=== PATIENT | female | born 1965 | race African-American/Black ===

== ENCOUNTER 2017-11-18 14:59 | Emergency (ER) | payer MEDICAID ==
[2017-11-18] MEDS ORDERED: Sodium Chloride 0.9% 10 ML Syringe FLUSH PRN (16:26)
[2017-11-18] MEDS ORDERED: Sodium Chloride 0.9% 2.5 ML Syringe FLUSH PRN (16:26)
[2017-11-18] MEDS ORDERED: Bupivacaine 0.5% 10 ML SDV INJECT ONE (16:29)
--- NOTE | 2017-11-18 16:31 | EDM.PDOC ---
ED HPI GENERAL MEDICAL PROBLEM - General Chief Complaint: Upper Extremity Injury/Pain Stated Complaint: RIGHT HAND SWOLLEN Time Seen by Provider: 11/18/17 15:06 Source of Information: Reports: Patient History Limitations: Reports: No Limitations - History of Present Illness INITIAL COMMENTS - FREE TEXT/NARRATIVE: History of present illness: []Patient punched a wall 7 days ago her right index finger started swelling and she started digging it thinking that was something inside of it. Worse with increased swelling denies any fevers, chills or drainage from the wound. Review of systems: As per history of present illness and below otherwise all systems reviewed and negative. Past medical history: As per history of present illness and as reviewed below otherwise noncontributory. Surgical history: As per history of present illness and as reviewed below otherwise noncontributory. Social history: No reported history of drug or alcohol abuse. Family history: As per history of present illness and as reviewed below otherwise noncontributory. Physical exam: General: Well developed, well nourished in NAD HEENT: Atraumatic, normocephalic, pupils reactive, negative for conjunctival pallor or scleral icterus, mucous membranes moist, throat clear, neck supple, nontender, trachea midline. Lungs: Clear to auscultation, breath sounds equal bilaterally, chest nontender. Heart: S1S2, regular, negative for clicks, rubs, or JVD. Abdomen: Soft, nondistended, nontender. Negative for masses or hepatosplenomegaly. Negative for costovertebral tenderness. Pelvis: Stable nontender. Genitourinary: Deferred. Rectal: Deferred. Extremities: Atraumatic, negative for cords or calf pain. Neurovascular unremarkable. Neuro: Awake, alert, oriented. Cranial nerves II through XII unremarkable. Cerebellum unremarkable. Motor and sensory unremarkable throughout. Exam nonfocal. Skin:warm and dry Diagnostics: X-ray no fracture positive soft tissue swelling no gas or fluid noted Therapeutics: IV vancomycin, Bactrim by mouth, digital block for pain relief ED Course: Unremarkable Impression: Cellulitis right index finger Prescriptions: Bactrim twice a day for 10 days Plan: Discussed management with Dr. Rosa. Follow up hand surgery Definitive disposition and diagnosis as appropriate pending reevaluation and review of above. ` right hand Pain Score (Numeric/FACES): 10 - Related Data Allergies Allergy/AdvReac Type Severity Reaction Status Date / Time No Known Allergies Allergy Verified 11/18/17 15:54 Home Meds: Home Meds Diclofenac Sodium [Voltaren] 75 mg PO BIDMEALS PRN #20 tab.cr 11/18/17 [Rx] Sulfamethoxazole/Trimethoprim [Bactrim Ds Tablet] 1 each PO BID #20 tablet 11/18 [Rx] Past Medical History Immunologic History: Reports: HIV - Infectious Disease History Infectious Disease History: Reports: None - Past Surgical History GI Surgical History: Reports: Appendectomy Social & Family History - Family History Family Medical History: Noncontributory - Tobacco Use Smoking Status *Q: Current Every Day Smoker Years of Tobacco use: 40 Packs/Tins Daily: 0.4 - Alcohol Use Days Per Week of Alcohol Use: 1 Number of Drinks Per Day: 2 Total Drinks Per Week: 2 - Recreational Drug Use Recreational Drug Use: Yes Drug Use in Last 12 Months: Yes Recreational Drug Type: Reports: Cocaine Review of Systems - Review of Systems Review Of Systems: ROS reveals no pertinent complaints other than HPI. ED EXAM, GENERAL - Physical Exam Exam: See Below (See history of present illness) Course - Vital Signs Last Recorded V/S: Last Vital Signs Temp 98.2 F 11/18/17 15:54 Pulse 120 H 11/18/17 15:54 Resp 22 H 11/18/17 15:54 BP 144/88 H 11/18/17 15:54 Pulse Ox 97 11/18/17 15:54 - Orders/Labs/Meds Orders: Active Orders 24 hr Category Date Time Status Hand Comp Min 3V Rt [CR] Stat Exams 11/18/17 15:56 Taken Sodium Chloride 0.9% [Saline Flush] Med 11/18/17 16:26 Active 10 ml FLUSH ASDIRECTED PRN Sodium Chloride 0.9% [Saline Flush] Med 11/18/17 16:26 Active 2.5 ml FLUSH ASDIRECTED PRN Saline Lock Insert [OM.PC] Stat Oth 11/18/17 16:26 Ordered Medication Orders Sodium Chloride (Saline Flush) 10 ml FLUSH ASDIRECTED PRN PRN Reason: Keep Vein Open Last Admin: 11/18/17 16:53 Dose: 10 ml Sodium Chloride (Saline Flush) 2.5 ml FLUSH ASDIRECTED PRN PRN Reason: Keep Vein Open Last Admin: 11/18/17 16:53 Dose: 2.5 ml Meds: Medications Generic Name Dose Route Start Last Admin Trade Name Freq PRN Reason Stop Dose Admin Sodium Chloride 10 ml 11/18/17 16:26 11/18/17 16:53 Saline Flush FLUSH 10 ml ASDIRECTED PRN Administration Keep Vein Open Sodium Chloride 2.5 ml 11/18/17 16:26 11/18/17 16:53 Saline Flush FLUSH 2.5 ml ASDIRECTED PRN Administration Keep Vein Open Discontinued Medications Generic Name Dose Route Start Last Admin Trade Name Freq PRN Reason Stop Dose Admin Bupivacaine HCl 10 ml 11/18/17 16:29 11/18/17 16:52 Sensorcaine-Mpf 0.5% INJECT 11/18/17 16:30 10 ml ONETIME ONE Administration Vancomycin HCl 1 gm/ Sodium 250 mls @ 250 mls/hr 11/18/17 16:26 11/18/17 16: 53 Chloride IV 11/18/17 17:25 250 mls/hr ONETIME ONE Administration Lidocaine HCl 5 ml 11/18/17 16:29 11/18/17 16:52 Xylocaine-Mpf 1% INJECT 11/18/17 16:30 5 ml ONETIME ONE Administration Departure - Departure Time of Disposition: 18:20 Disposition: Home, Self-Care 01 Condition: Good Clinical Impression: Cellulitis of right index finger - Discharge Information *PRESCRIPTION DRUG MONITORING PROGRAM REVIEWED*: No *COPY OF PRESCRIPTION DRUG MONITORING REPORT IN PATIENT YOSI: No Prescriptions: Diclofenac Sodium [Voltaren] 75 mg PO BIDMEALS PRN #20 tab.cr PRN Reason: Pain Sulfamethoxazole/Trimethoprim [Bactrim Ds Tablet] 1 each PO BID #20 tablet Referrals: PCP,None [Primary Care Provider] - Forms: ED Department Discharge Additional Instructions: The following information is given to patients seen in the emergency department who are being discharged to home. This information is to outline your options for follow-up care. We provide all patients seen in our emergency department with a follow-up referral. The need for follow-up, as well as the timing and circumstances, are variable depending upon the specifics of your emergency department visit. If you don't have a primary care physician on staff, we will provide you with a referral. We always advise you to contact your personal physician following an emergency department visit to inform them of the circumstance of the visit and for follow-up with them and/or the need for any referrals to a consulting specialist. The emergency department will also refer you to a specialist when appropriate. This referral assures that you have the opportunity for follow-up care with a specialist. All of these measure are taken in an effort to provide you with optimal care, which includes your follow-up. Under all circumstances we always encourage you to contact your private physician who remains a resource for coordinating your care. When calling for follow-up care, please make the office aware that this follow-up is from your recent emergency room visit. If for any reason you are refused follow-up, please contact the [facility] Emergency Department at and asked to speak to the emergency department charge nurse. Take Bactrim as directed and use diclofenac for pain follow-up with hand surgery or return to ER if symptoms worsen or change. [facility] - Plastic Surgery Professional Building [address] [place] [address], [address] [place] [address] - My Orders Last 24 Hours: My Active Orders 11/18/17 15:56 Hand Comp Min 3V Rt [CR] Stat 11/18/17 16:26 Sodium Chloride 0.9% [Saline Flush] 10 ml FLUSH ASDIRECTED PRN Sodium Chloride 0.9% [Saline Flush] 2.5 ml FLUSH ASDIRECTED PRN Saline Lock Insert [OM.PC] Stat - Assessment/Plan Last 24 Hours: My Active Orders 11/18/17 15:56 Hand Comp Min 3V Rt [CR] Stat 11/18/17 16:26 Sodium Chloride 0.9% [Saline Flush] 10 ml FLUSH ASDIRECTED PRN Sodium Chloride 0.9% [Saline Flush] 2.5 ml FLUSH ASDIRECTED PRN Saline Lock Insert [OM.PC] Stat
--- NOTE | 2017-11-19 12:35 | CR ---
EXAM DATE: 11/18/17 PATIENT'S AGE: 52 Patient: CAMERON TUCKER Facility: [place], [place] Site . Site : [id number] Study: XRay Extremity Right Hand [id number] 4:16:31 PM Ordering Physician: Stevo Mcintosh Final Report: Indication: Injury Technique: Three views of the right hand Comparison: None available Findings: Bones: Apparent mild contour irregularity at the dorsum of the 3rd metacarpal head on the lateral view which could be projectional. Otherwise no acute fracture or dislocation. Joint spaces: Unremarkable. Soft tissues: Focal soft tissue swelling in the mid 2nd digit. A small calcification dorsal to the base of the 5th metacarpal. Impression: Apparent mild focal contour irregularity at the dorsum of the 3rd metacarpal head could be projectional, however correlate for focal tenderness. Otherwise no acute fracture. Mid 2nd digit soft tissue swelling. A small soft tissue calcification dorsal to the 5th metacarpal base is of unclear chronicity and etiology. A foreign body cannot be excluded. Dictated by Rafi Galindo MD @ 11/18/2017 4:25:26 PM Dictated by: Rafi Galindo MD @ 11/18/2017 16:25:31 (Electronic Signature) Report Signed by Proxy. [facility]
== END 2017-11-18 18:25 | disposition home or self-care (01) ==
LOC: MW.ED 14:59
DX: L03.011 Cellulitis of right finger (principal); F17.210 Nicotine dependence, cigarettes, uncomplicated; Z21 Asymptomatic human immunodeficiency virus [HIV] infection status
CPT/HCPCS: 73130; 96365; 96366; 99283; J3370; J3490; J7050